=== PATIENT | female | born 1990 | race Caucasian/White ===

== ENCOUNTER 2017-01-10 13:09 | Day surgery (SDC) | payer OTHER ==
[~2017-01-10] VITALS: Ht 162.6 cm; Wt 98.6 kg
[~2017-01-10 13:09] MED LIST: ADDERALL20 MG PO; ATIVAN1 MG PO; LEXAPRO20 MG PO; NORCO 5/3251 TABLET PO; TRAZODONE HCL50 MG PO
[2017-01-10 14:01] VITALS: BP 123/62
[2017-01-10 21:05] VITALS: BP 119/66
[2017-01-10 23:31] VITALS: BP 127/76
[2017-01-11 04:39] VITALS: BP 127/77
[2017-01-11 07:44] VITALS: BP 145/85
== END 2017-01-11 11:05 | disposition home or self-care (01) ==
LOC: SDC 13:09 → 3EAST 17:10 → 2SOUTH 17:10 → ENRESERV 17:35 → 3EAST 19:41
PROC: 0PSG04Z Reposition Left Humeral Shaft with Internal Fixation Device, Open Approach (ICD-10-PCS; principal; 2017-01-10)
DX: S42.452A Displaced fracture of lateral condyle of left humerus, initial encounter for closed fracture (principal); X58.XXXA Exposure to other specified factors, initial encounter; J47.9 Bronchiectasis, uncomplicated; E11.9 Type 2 diabetes mellitus without complications; F90.1 Attention-deficit hyperactivity disorder, predominantly hyperactive type; F84.5 Asperger's syndrome; E66.3 Overweight; Z68.29 Body mass index [BMI] 29.0-29.9, adult
CPT/HCPCS: 73070; 76000; 85027; G0378; J0131; J0690; J1885; J2250; J2405; J2795; J3010